=== PATIENT | male | born 1945 ===

== ENCOUNTER 2024-08-18 16:17 | Emergency (ER) | payer OTHER ==
[~2024-08-18] VITALS: Ht 170.2 cm; Wt 92.2 kg
[2024-08-18 16:49] VITALS: BP 143/66; PULSE 70; RESP 16; TEMP 98; O2SAT 97
[2024-08-18 17:46] LABS: BASOPHILS % (AUTO) 0.4 % (0-1); EOSINOPHILS # (AUTO) 0.1 X10'3 (0-0.9); EOSINOPHILS % (AUTO) 1.3 % (0-6); HEMATOCRIT 39.5 % (42.0-52.0); HEMOGLOBIN 13.7 g/dl (14.0-17.9); LYMPHOCYTES # (AUTO) 1.5 X10'3 (1.1-4.8); MEAN CORPUSCULAR HEMOGLOBIN 30.7 PG (27.0-31.0); MEAN CORPUSCULAR HGB CONC 34.8 g/dL (33.0-36.5); MEAN CORPUSCULAR VOLUME 88.4 FL (78-98); MEAN PLATELET VOLUME 8.7 FL (7.4-10.4); MONOCYTES # (AUTO) 0.5 X10'3 (0-0.9); NEUTROPHILS # (AUTO) 4.2 X10'3 (1.8-7.7); NEUTROPHILS % (AUTO) 66.3 % (42-75); PLATELET COUNT 180 X10'3 (140-440); RED BLOOD COUNT 4.46 X10'6 (4.70-6.10); RED CELL DISTRIBUTION WIDTH 13.9 % (11.5-14.5); WHITE BLOOD COUNT 6.3 X10'3 (4.5-11.0)
[2024-08-18 18:12] LABS: ALANINE AMINOTRANSFERASE 26 U/L (12-78); ALBUMIN 3.6 G/DL (3.4-5.0); ALBUMIN/GLOBULIN RATIO 0.9 (1.1-1.5); ALKALINE PHOSPHATASE 84 IU/L (46-116); ANION GAP 7 (8-16); ASPARTATE AMINO TRANSFERASE 18 U/L (10-37); BILIRUBIN,TOTAL 0.8 MG/DL (0.1-1.0); BLOOD UREA NITROGEN 22 MG/DL (7-18); BUN/CREATININE RATIO 14.1 (10.0-20.0); CHLORIDE 103 MMOL/L (99-107); CREATININE 1.56 MG/DL (0.60-1.10); GLUCOSE 103 MG/DL (70-104); SODIUM 136 MMOL/L (135-145); TOTAL CARBON DIOXIDE 26.4 MMOL/L (24-32); TOTAL PROTEIN 7.7 G/DL (6.4-8.2); eCRCL 37 ML/MIN; eGFR 43 ML/MIN
[2024-08-18 18:23] LABS: PRO BRAIN NATRIURETIC PEPTIDE 202 PG/ML (0-450)
== END 2024-08-19 00:38 | disposition left against medical advice (07) ==
LOC: ER 16:18
DX: R07.9 Chest pain, unspecified (principal); Z53.21 Procedure and treatment not carried out due to patient leaving prior to being seen by health care provider
CPT/HCPCS: 36415; 71045; 80053; 83880; 84484; 85025; 93005

== ENCOUNTER 2025-04-07 15:06 | Emergency (ER) | payer OTHER ==
[~2025-04-07] VITALS: Ht 170.2 cm; Wt 76.8 kg
[2025-04-07 15:13] VITALS: BP 170/79; PULSE 70; RESP 18; TEMP 98.5; O2SAT 98
--- NOTE | 2025-04-07 16:15 | Physician Documentation ---
History of Present Illness Chief Complaint: Extremity Swelling Stated Complaint: BLOOD CLOT Time Seen by MD: 15:51 HPI The patient is a 80-year-old gentleman that reports to the emergency department for evaluation of left lower leg extremity without pain. She reports that he just recently returned from international traveling. Reports that his leg has been swollen for approximately a week. Denies any known trauma or injuries that like. Medication Reconciliation Allergies: Coded Allergies: lobster (Unverified Allergy, Unknown, 04/07/25) shrimp (Unverified Allergy, Unknown, 04/07/25) Physical Exam Vital Signs: Temperature: 98.5, Source: Temporal, Heart Rate: 70, Respiratory Rate: 18, BP: 170/79, Pulse Oximetry: 98, Weight: 76.800 Oxygen Flow Rate: 0 Progress Results/Orders Results/Orders Orders - KATIE ALCANTARA Vl Venous (04/07/25 15:19) Vital Signs 04/07/25 15:13 Temp 98.5 Pulse 70 Resp 18 B/P (MAP) 170/79 Pulse Ox 98 O2 Flow Rate 0 Departure Referrals: NO PRIMARY CARE PROVIDER (PCP) KATIE ALCANTARA Apr 07, 2025 16:15
--- NOTE | 2025-04-07 18:47 | VASCULAR REPORT ---
Technique: Real-time ultrasound imaging, with color Doppler and compression of the left common femor al vein, femoral vein, greater saphenous vein, and popliteal vein. Indication: Left ankle swelling Comparison: None Findings: There is normal compressibility and flow augmentation in all of the imaged deep veins. There are no f illing defects. Impression: No evidence of DVT in the left lower extremity
== END 2025-04-07 20:00 | disposition left against medical advice (07) ==
LOC: ER 15:07
DX: M25.472 Effusion, left ankle (principal)
CPT/HCPCS: 93971; 99284